=== PATIENT | male | born 1990 | race Asian ===

== ENCOUNTER 2022-07-10 08:39 | Emergency (ER) | payer OTHER ==
[~2022-07-10] VITALS: Ht 170.2 cm; Wt 109.1 kg
[2022-07-10 09:03] LABS: BASOPHILS % (AUTO) 3.1 % (0.0-2.0); EOSINOPHILS % (AUTO) 2.4 % (1.0-6.0); HEMATOCRIT 30.7 % (41-53); HEMOGLOBIN 10.2 g/dL (13.5-17.5); LYMPHOCYTES # (AUTO) 1.9 K/uL (1.0-4.8); LYMPHOCYTES % (AUTO) 23.7 % (22.0-44.0); MEAN CORPUSCULAR HEMOGLOBIN 29.8 pg (26.0-34.0); MEAN CORPUSCULAR HGB CONC 33.3 G/dL (31.0-37.0); MEAN CORPUSCULAR VOLUME 90 fL (80-100); MONOCYTES # (AUTO) 0.7 K/uL (0.1-1.0); MONOCYTES % (AUTO) 8.3 % (2.0-9.0); NEUTROPHILS # (AUTO) 5.1 K/uL (1.8-7.7); NEUTROPHILS % (AUTO) 62.5 % (40.0-70.0); PLATELET COUNT (AUTO) 550 K/uL (150-450); RED BLOOD CELL COUNT(AUTO) 3.43 MIL/uL (4.50-5.90); RED CELL DISTRIBUTION WIDTH 14.3 % (11.5-14.5)
[2022-07-10 09:11] LABS: ANION GAP 5 mmol/L (8-16); CALCIUM, TOTAL 8.2 mg/dL (8.8-10.5); CARBON DIOXIDE 28 mmol/L (22-29); CHLORIDE 109 mmol/L (98-107); CREATININE 2.67 mg/dL (0.60-1.30); GLUCOSE,RANDOM 81 mg/dL (70-110); POTASSIUM 3.7 mmol/L (3.5-5.1); SODIUM SERUM 142 mmol/L (136-145); UREA NITROGEN, BLOOD 46 mg/dL (7-18)
[2022-07-10 09:13] LABS: GLOMERULAR FILTR. RATE CALC 28 mL/min (>60)
[2022-07-10 09:18] LABS: ALANINE AMINOTRANSFERASE 27 U/L (12-78); ALBUMIN 1.2 g/dL (3.4-5.0); ALKALINE PHOSPHATASE 85 U/L (46-116); ASPARTATE AMINOTRANSFERASE 33 U/L (15-37); TOTAL PROTEIN, SERUM 5.3 g/dL (6.4-8.2)
[2022-07-10 09:22] LABS: BILIRUBIN,TOTAL < 0.1 mg/dL (0.1-1.0)
[2022-07-10] MEDS ORDERED: DEXTROSE 50%-WATER 25 GM/50 ML SYRINGE IVP ONE (09:45)
[2022-07-10 09:46] LABS: GLUCOSE,POINT OF CARE 57 MG/DL (70-110)
[2022-07-10 10:25] LABS: GLUCOSE,POINT OF CARE 100 MG/DL (70-110)
[2022-07-10 11:09] LABS: AMPHET/METH SCREEN,URINE NEGATIVE (NEGATIVE); BARBITURATE SCREEN, URINE NEGATIVE (NEGATIVE); BENZODIAZEPINES SCREEN,URINE NEGATIVE (NEGATIVE); CANNABINOID SCREEN,URINE POSITIVE (NEGATIVE); COCAINE SCREEN,URINE NEGATIVE (NEGATIVE); METHADONE SCREEN, URINE NEGATIVE (NEGATIVE); OPIATE SCREEN,URINE NEGATIVE (NEGATIVE)
[2022-07-10 11:12] LABS: PHENCYCLIDINE SCREEN,URINE NEGATIVE (NEGATIVE)
[2022-07-10 11:16] LABS: GLUCOSE,POINT OF CARE 108 MG/DL (70-110)
[2022-07-10 11:47] LABS: GLUCOSE,POINT OF CARE 101 MG/DL (70-110)
[2022-07-10 12:31] LABS: GLUCOSE,POINT OF CARE 106 MG/DL (70-110)
[2022-07-10 13:21] VITALS: BP 136/87
[2022-07-10 13:26] LABS: GLUCOSE,POINT OF CARE 135 MG/DL (70-110)
== END 2022-07-10 13:24 | disposition home or self-care (01) ==
LOC: EMS 08:43
DX: E11.649 Type 2 diabetes mellitus with hypoglycemia without coma (principal); I13.10 Hypertensive heart and chronic kidney disease without heart failure, with stage 1 through stage 4 chronic kidney disease, or unspecified chronic kidney disease
CPT/HCPCS: 99284; 96374; 80053; 82962; 85025; 36415; 93005; 80307; 82948; G0480